=== PATIENT | male | born 1955 | race Caucasian/White ===

== ENCOUNTER 2023-06-12 17:37 | Emergency (ER) | payer BC, SELFPAY ==
--- NOTE | ~2023-06-12 | US_ITS ---
EXAMINATION: US EXTREMITY NONVASCULAR. CLINICAL INFORMATION: Right calf pain. Question injury. COMPARISON: None. TECHNIQUE: Limited ultrasound imaging to the right calf to ankle was performed. FINDINGS: A small hypoechoic area in the right medial calf measuring 1.67 x 3.03 x 0.706 cm is avascular. Findings are most suggestive of intramuscular hematoma. US/US extremity nonvascular IMPRESSION: Findings most suspicious for intramuscular hematoma in the medial distal calf. No increased vascularity seen.
[2023-06-12 18:21] VITALS: BP 152/96; PULSE 80; RESP 17; TEMP 36.7; O2SAT 99; BMI 27.9
--- NOTE | 2023-06-12 18:23 | ED.LOWEXIN ---
HPI - Extremity Injury (Lower) General Chief Complaint: Extremity Injury, Lower Stated Complaint: heard pop in calf muscle, difficulty walking Time Seen by Provider: 06/12/23 20:53 Source: patient and RN notes reviewed Mode of arrival: ambulatory Limitations: no limitations History of Present Illness HPI Narrative: 67-year-old male presents for evaluation of pain to the right calf. Patient reports he was trying to run with his grandson. He felt a pop in his right calf when taking his 1st step to try around He reports pain with any kind of weight-bearing or ambulation The pain does not radiate He is able to flex and extend the right foot No other complaints or concerns of Related Data Allergies Allergy/AdvReac Type Severity Reaction Status Date / Time atorvastatin [From LIPITOR] Allergy Intermediate FATTY LIVER Unverified 07/13/20 15:09 Review of Systems Musculoskeletal: Musculoskeletal: Denies deformity, Reports muscle cramps and Denies muscle weakness PMFSH Social History Social History Advance Directives: No Advance Directives Information Provided: No Physical Exam Vital Signs: Vital Signs: Last Vital Signs Temp 98.7 F 06/12/23 20:27 Pulse 72 06/12/23 20:27 Resp 18 06/12/23 20:27 BP 127/76 06/12/23 20:27 Pulse Ox 100 06/12/23 20:27 O2 Del Method Room Air 06/12/23 20:27 BMI result Body Mass Index 27.9 Const: General: healthy appearing, comfortable, no acute distress, alert and awake Nutritional Appearance: well nourished Orientation/consciousness: patient oriented x3 HEENT: Head: Yes normocephalic and Yes atraumatic Throat: Yes posterior oropharynx normal Eyes: Eyelids: Yes eyelids normal Conjunctivae: conjunctivae normal Sclerae: sclerae normal Corneas: corneas normal Pupils: Equal, round and reactive pupils present EOM: EOMs intact bilaterally Resp: Effort & Inspection: normal respiratory effort, able to speak in complete sentences and not labored Skin: General skin exam: elasticity normal Neuro: General: patient oriented x3 Cranial nerves: Yes Equal, round and reactive pupils present and Yes Bilaterally intact EOM present Cognition (Neuro): normal cognition Extrem: Other: Patient able to plantar flex and dorsiflex the right foot. He has a negative Real test on the right. He does have tenderness to the right mid upper calf. No significant deformity visual or palpable Course Course Course Narrative: RME: 67yo M w/PMHx HTN, HLD, c/o R calf pain s/p running with grandchild this afternoon, admits felt a pop. Has not ambulated since incident. denies currently being on Abx Ambulating with crutches. Proximal/mid calf with tenderness, Achilles nontender. Dorsiflexion causes some discomfort, plantar flexion intact Full HPI, ROS and PE to be performed by primary ED provider. Medical Decision Making Medical Decision Making [facility] Narrative: 67-year-old male presents for evaluation of likely soft tissue injury. Ultrasound was ordered in triage. Patient has a negative Real test is able to flex and extend the right foot. He has no tenderness over the right Achilles tendon. Clinically, the patient likely has a gastrocnemius strain versus tear. The patient was given crutches and referred to Orthopedics Differential Diagnosis Differential Diagnoses: The differential diagnosis associated with the presentation includes Muscle strain Contusion DVT Achilles tendon rupture Gastrocnemius tear Ruptured Gomes cyst Discharge Plan Discharge Clinical Impression: Pain of right calf Patient Disposition: Home, Self-Care Instructions: Leg Pain (ED) Additional Instructions: Follow-up with orthopedics at the number provided Use ibuprofen/Tylenol for pain Use are ibuprofen/Tylenol for pain Elevate your leg above your heart while resting Use the crutches to avoid bearing weight Referrals: Nando Pitt MD [Physician] - (right calf tear)
[2023-06-12 20:27] VITALS: BP 127/76; PULSE 72; RESP 18; TEMP 37.1; O2SAT 100
== END 2023-06-12 22:29 | disposition home or self-care (01) ==
PROVIDERS: Emergency Provider Emergency Medicine; PCP Physician Assistant Medical
DX: M79.661 Pain in right lower leg (principal)
CPT/HCPCS: 76882; 99283; 99284

== ENCOUNTER 2023-06-18 13:26 | Outpatient (AMB) | payer BC, SELFPAY ==
--- NOTE | 2023-06-18 13:44 | A.OFFVIS_ITS ---
Intake Intake Visit Reasons: EDF/U-gastrocnemius strain versus tear. Intake Note: Pineda is a 67 year old male who presents today for a fracture care appointment for his right calf pain, DOI 06/12/23. Patient reports he was trying to run with his grandson, felt a pop in his right calf when taking his 1st step and he missed it. Allergies atorvastatin [From LIPITOR] Allergy (Intermediate, Verified 06/18/23 13:47) FATTY LIVER HPI EDF/U-gastrocnemius strain versus tear. HPI Details 67-year-old male who presents in the office today, as a new patient, for an evaluation of right calf pain. The patient presented to the ED on 06/12/2023 status post running with his grandson when he felt a pop in the right calf. He was placed on crutches and instructed to avoid weight bearing. He claims to have pain with any kind of weight bearing or ambulation. Review of Systems Const All systems reviewed & are unremarkable except as noted in HPI and below Physical Exam Const General: cooperative and no acute distress Orientation/consciousness: patient oriented x3 Resp Effort & Inspection: normal respiratory effort and able to speak in complete sentences Cardio Peripheral pulses: Peripheral pulses 2+ throughout Skin General skin exam: no rashes or lesions noted Neuro General: patient oriented x3 Extrem Other: Right calf: Pain with calf muscle belly squeeze. Negative Real test. Achilles palpable and intact. Able to dorsiflex and plantarflex. NVI. Assessment & Plan Assessment & Plan (1) Strain of right gastrocnemius muscle: Code(s): S86.111A - Strain of other muscle(s) and tendon(s) of posterior muscle group at lower leg level, right leg, initial encounter (2) Pain of right calf: Code(s): M79.661 - Pain in right lower leg Plan Mr. Ring is a 67-year-old male who presents in the office today, as a new patient, for an evaluation of right calf pain. The patient presented to the ED on 06/12/2023 status post running with his grandson when he felt a pop in the right calf. He was placed on crutches and instructed to avoid weight bearing. He claims to have pain with any kind of weight bearing or ambulation. The patient was placed in a tall walking boot, off the shelf, while in the office today. He may weight bear as tolerated. He will be referred to physical therapy to work on gentle ROM modalities. Follow up will be in 4-6 weeks, or sooner if needed. Ultrasound of the right lower extremity, obtained on 06/12/2023, revealed: Findings most suspicious for intramuscular hematoma in the medial distal calf. No increased vascularity seen. Orders: Orders PT Evaluation and Treatment 06/18/23 M79.661 - Pain in right lower leg, S86.111A - Strain of other muscle(s) and tendon(s) of posterior muscle group at lower leg level, right leg, initial encounter Patient Instructions: Scribed for Elenita Lindsey PA-C by Winifred Rene medical reimbursement manager, on 06/18/2023 at 1:32 pm, EST. Coding Level of Care Code New Pt Level 3 (83861) Diagnoses Strain of right gastrocnemius muscle S86.111A Pain of right calf M79.661
== END 2023-06-18 14:01 | disposition home or self-care (01) ==
PROVIDERS: PCP Physician Assistant Medical; Visit Provider Physician Assistant
DX: S86.111A Strain of other muscle(s) and tendon(s) of posterior muscle group at lower leg level, right leg, initial encounter (principal); M79.661 Pain in right lower leg
CPT/HCPCS: 99203

== ENCOUNTER → 2023-06-18 13:26 | Outpatient (BNVA) | payer BC, SELFPAY | PROVIDERS: PCP Physician Assistant Medical; Visit Provider Physician Assistant ==

== ENCOUNTER 2023-07-31 09:42 | Outpatient (AMB) | payer BC, SELFPAY ==
[2023-07-31 09:44] VITALS: BMI 27.9
--- NOTE | 2023-07-31 09:44 | MHC.OFFVIS ---
Intake Vital Signs 07/31/23 09:44 Height 5 ft 6 in Weight 173 lb BMI 27.9 Intake Visit Reasons: gastrocnemius strain versus tear Intake Note: Pineda is a 67 year old male who presents today for a follow up appointment for his right calf pain, DOI 06/12/23. Patient reports he was racing with his grandson and he felt a popping sensation in his calf. He states that is pain is getting better and he is going to PT. Allergies atorvastatin [From LIPITOR] Allergy (Intermediate, Verified 07/31/23 09:44) FATTY LIVER HPI gastrocnemius strain versus tear HPI Details 67-year-old male who presents in the office today for a follow up of a right gastrocnemius muscle strain, which occurred on 06/12/2023 status post running with his grandson when he felt a pop in the right calf. He states his pain is getting better. He confirms participating in physical therapy with relief. He states he has sessions until the end of July 2023. He presents in the office today in a supportive sneaker. He confirms he has been working on long distance walking out of the boot. [facility] Social History (Updated 07/31/23 @ 09:59 by Maribell Anaya) Alcohol intake: never Patient Tobacco Use Status: Never used Tobacco Review of Systems Const All systems reviewed & are unremarkable except as noted in HPI and below Physical Exam Vital Signs: BMI result Body Mass Index 27.9 Const General: cooperative, healthy appearing and no acute distress Resp Effort & Inspection: normal respiratory effort and able to speak in complete sentences Cardio Rate: regular rate Peripheral pulses: Peripheral pulses 2+ throughout GI Palpation (GI): Soft to palpation Skin Lesions: no lesions Rashes: no rashes Extrem Other: Right calf: Resolved pain with calf muscle belly squeeze. Negative Real test. Achilles palpable and intact. Able to dorsiflex and plantarflex. NVI. Assessment & Plan Assessment & Plan (1) Strain of right gastrocnemius muscle: Code(s): S86.111A - Strain of other muscle(s) and tendon(s) of posterior muscle group at lower leg level, right leg, initial encounter Qualifiers: Encounter type: subsequent encounter Qualified Code(s): S86.111D - Strain of other muscle(s) and tendon(s) of posterior muscle group at lower leg level, right leg, subsequent encounter (2) Pain of right calf: Code(s): M79.661 - Pain in right lower leg Plan Mr. Ring is a 67-year-old male who presents in the office today for a follow up of a right gastrocnemius muscle strain, which occurred on 06/12/2023 status post running with his grandson when he felt a pop in the right calf. He states his pain is getting better. He confirms participating in physical therapy with relief. He states he has sessions until the end of July 2023. He presents in the office today in a supportive sneaker. He confirms he has been working on long distance walking out of the boot. I instructed the patient to continue working with physical therapy. He has agreed to attend. He states he was granted 28 sessions, but has only been scheduled for 14. After completion of his sessions he can work on the at home exercise program at home. Follow up will be PRN, or sooner if needed. Patient Instructions: Scribed for Elenita Lindsey PA-C by Winifred Rene biomedical electronics technician, on 07/31/2023 at 9:44 am, EST. Coding Level of Care Code Est Pt Level 3 (93554) Diagnoses Strain of right gastrocnemius muscle, subsequent encounter S86.111D Encounter type: subsequent encounter Pain of right calf M79.661
== END 2023-07-31 10:16 | disposition home or self-care (01) ==
PROVIDERS: PCP Internal Medicine; Visit Provider Physician Assistant
DX: S86.111D Strain of other muscle(s) and tendon(s) of posterior muscle group at lower leg level, right leg, subsequent encounter (principal); M79.661 Pain in right lower leg
CPT/HCPCS: 99213

== ENCOUNTER → 2023-07-31 09:42 | Outpatient (BNVA) | payer BC, SELFPAY | PROVIDERS: PCP Internal Medicine; Visit Provider Physician Assistant ==

== ENCOUNTER 2023-08-01 10:47 | Outpatient (AMB) | payer BC, SELFPAY ==
--- NOTE | 2023-08-01 11:00 | HO.SPINEOV ---
Intake Intake Visit Reasons: Displacement of cervical disc Intake Note: Mr. Ring is here today c/o neck pain. Hot Roller Required: No Allergies atorvastatin [From LIPITOR] Allergy (Intermediate, Verified 07/31/23 09:44) FATTY LIVER Assessment & Plan Assessment & Plan (1) Cervical radiculopathy: Code(s): M54.12 - Radiculopathy, cervical region Plan Mr Ring is a very nice 67-year-old gentleman who self-referred himself here to the office today to establish care for his spinal issues. He had 2 previous L5-S1 disc surgeries with Dr. Guadarrama many years ago. He was left with weakness of his foot after those surgeries. That has for the most part recover but he still has a little bit of instability. From the standpoint of his neck, he has been dealing with neck issues for many years. At 1 point he was told that he would be a candidate for a spinal fusion in his neck. He chose not to have that operation and has been dealing with on and off neck pain with pain that goes down his right arm into his hand. It can come and go. It is not disabling to the degree that he is anticipating surgery on it but he is curious about the status of where things stand compared to years ago. He has no recent MRIs to review on his lumbar or cervical spine. He has no myelopathic symptoms in the sense that he has no fine motor movement disruption, loss of strength in the hands or the arms, incontinence etc.. From the standpoint of his low back, he has occasional numbness of his left foot which can past from time to time but nothing severe or disabling. Through the years he has undergone physical therapy, cortisone injections at [facility]. None of these things recently. PMH: History of hypertension, acid reflux, high cholesterol, rotator cuff surgery, lumbar surgery, cholecystectomy, surgery on his testicle, surgery on his right arm after fracture. Social hx: He does not smoke Medications: Fenofibrate, tramadol, lisinopril, Nexium, ibuprofen Allergies: Lipitor Physical exam: He is awake alert oriented no acute distress, gait is normal, motor exam with reduced 4-5 strength of the tibialis and extensor hallucis longus and reflexes normal, no Rosales's. Imaging review: He has old imaging from the and early 1999s of his cervical spine and this shows what looks like disc degeneration at C5-6 and C6-7 with moderate central canal stenosis. Impression: 67-year-old gentleman who self-referred himself here to the office today to establish care for his cervical and lumbar issues. He had a previous surgeon who has since retired and he is had ongoing neck pain going into his right arm from time to time. His strength and reflexes are reassuring. He takes tramadol and ibuprofen as needed. His lumbar issues are basically stable with baseline weakness and intermittent numbness of his left foot. I reviewed his old MRIs with him, we discussed his current set of symptoms and the natural history of degenerative disc disease in both cervical and the lumbar spine. I would like to get a new cervical MRI just to get an update on the stenosis situation and to see if there has been any significant change since that seems to be bothering him the most. I will call him with the results. Thank you for allowing us to care for your patient. The total time spent with this visit with this patient was 45 minutes reviewing history, physical exam, old cervical MRI imaging review, and implementation of treatment plan or further diagnostic testing Quintin Loya MD,PhD [facility] Orders: Orders MR cervical spine wo con Today M54.12 - Radiculopathy, cervical region Coding Level of Care Code New Pt Level 4 (93356) Diagnoses Cervical radiculopathy M54.12
== END 2023-08-01 11:42 | disposition home or self-care (01) ==
PROVIDERS: PCP Physician Assistant Medical; Referring Provider Physician Assistant Medical; Visit Provider Physician Assistant
DX: M54.12 Radiculopathy, cervical region (principal)
CPT/HCPCS: 99204

== ENCOUNTER → 2023-08-01 10:47 | Outpatient (BNVA) | payer BC, SELFPAY | PROVIDERS: PCP Physician Assistant Medical; Visit Provider Physician Assistant ==

== ENCOUNTER 2023-08-27 09:29 | Outpatient (REF) | payer BC, SELFPAY ==
--- NOTE | ~2023-08-27 | MR_ITS ---
EXAMINATION: MR CERVICAL SPINE WITHOUT CONTRAST CLINICAL INFORMATION: Radiculopathy, cervical region. COMPARISON: None available. TECHNIQUE: MRI of the cervical spine was obtained using routine sequences without contrast. FINDINGS: The visualized posterior fossa is unremarkable. Reversal of the normal cervical lordosis. Grade 1 anterolisthesis at C4-C5 and mild retrolisthesis at C6-C7. No abnormal bone marrow signal. The spinal cord is normal in caliber. No abnormal cord signal. C2-C3: Left greater than right facet arthrosis. Severe left neural foraminal narrowing. No significant spinal canal stenosis. C3-C4: Disc osteophyte complex, right greater than left uncovertebral hypertrophy, and right greater than left facet arthrosis. Severe right and moderate left neural foraminal narrowing. No significant spinal canal stenosis. C4-C5: Right greater than left uncovertebral hypertrophy and facet arthrosis. Severe right neural foraminal narrowing. No significant spinal canal stenosis. C5-C6: Disc osteophyte complex, bilateral uncovertebral hypertrophy, and bilateral facet arthrosis. Near complete effacement of the ventral thecal sac with minimal flattening of the cord. Mild spinal canal stenosis. Moderate to severe bilateral neural foraminal narrowing. C6-C7: Disc osteophyte complex, bilateral uncovertebral hypertrophy, and bilateral facet arthrosis. Near complete effacement of the ventral thecal sac with flattening of the cord. Mild to moderate spinal canal stenosis. Severe bilateral neural foraminal narrowing. C7-T1: Mild left neural foraminal narrowing. No significant spinal canal stenosis. The paravertebral soft tissues are unremarkable. The visualized lung apices are clear. Partially obscured T2 hyperintense nodule in the left thyroid lobe measuring approximately 1.4 cm. MR/MR cervical spine wo con IMPRESSION: -Multilevel cervical spondylosis as detailed above, most notable at C6-C7 where there is mild to moderate spinal canal stenosis with associated severe neural foraminal narrowing bilaterally. There is also mild spinal canal stenosis at C5-C6 with moderate to severe neural foraminal narrowing bilaterally. -1.4 cm partially obscured left thyroid lobe nodule. Thyroid nodule recommendation: No follow-up recommended unless deemed clinically necessary.
== END 2023-08-27 09:30 | disposition home or self-care (01) ==
LOC: HO.MRI 09:29
PROVIDERS: Visit Provider Physician Assistant
DX: M54.12 Radiculopathy, cervical region (principal)
CPT/HCPCS: 72141

== ENCOUNTER 2023-09-08 10:00 | Outpatient (RCR) | payer BC, SELFPAY ==
--- NOTE | 2023-07-09 12:59 | MHC.PT.EP ---
[facility] [place] Office [place] Office [place] Office [address] [phone] F: [phone] F: [phone] F: [phone] F: [phone] Physical Therapy Plan of Care Date of Evaluation: 07/09/23 Date of Surgery: Diagnosis: STRAIN OF RIGHT GASTROCNEMIUS MUSCLE Assessment: 67 YO MALE REF TO PT W H/O 06/12/23 RUNNING/ ACCELERATING AND INJURING HIS Rt GASTROC-> ER AND AN US R/O A COMPLETE TEAR- HE HAS BEEN WBAT Rt LE IN A TALL WALKING BOOT SINCE 06/18/23. 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 HE HAS RESIDUAL WEAKNESS IN HIS LEFT FOOT/ EHL S/P 2 LUMBAR DISCECTOMIES. OBJECTIVELY: LIMITED ROM IN Rt ANKLE, DECR HIP FLEXIB, (+) EDEMA Rt ANKLE W RESOLVING BRUISING, IMPACTED FUNCT MOB/ STAND/ WALK/ DRUMMING, AND TENDERNESS Rt MEDIAL GASTROC MUSCULOTENDINOUS JUNCTION. HE WOULD BENEFIT FROM PT TO ADDRESS ROM, STABILITY, PAIN MGMT, AND FUNCTIONAL MOB. Frequency and Duration: The patient will be seen 2 x WK x 5 WKS Short Term Goals: *DECR PAIN Rt GASTROC/ CALF TO 2-3/10 *IMPROVE ROM Rt ANKLE AND HIP *INITIATE HEP *INITIATE PROPRIOC/ STATIC BALANCE PROGR Dietary Service Aide Goals: *Pt RESUME REG ADLs W/O Rt WALKING BOOT *Pt DEMON EFFICIENT GAIT MECH ON LEVEL GROUND AND STAIRS *INDEP HEP AND SELF-SX MGMT TECHN *IMPROVE LEFI SCORE INCR FUNCT INDEP (AT EVAL 33/80) Treatment Plan: Modalities to reduce pain, spasms and effusion. Manual therapy to restore motion and function. Therapeutic exercise to improve strength and flexibility. Neuromuscular re-education for posture and balance. Therapeutic activities to return to functional activities of daily living. Electronically signed by: RASHAWN GUERRERO,PT Please sign and return to therapist. Thank you for your referral.
--- NOTE | 2023-10-16 11:51 | MHC.PT.DC ---
[facility] [place] Office [place] Office [place] Office [address] [facility] [phone] F: [phone] F: [phone] F: [phone] F: [phone] Physical Therapy Discharge Report Diagnosis: STRAIN OF RIGHT GASTROCNEMIUS MUSCLE Date of Surgery: Date of Evaluation: 07/09/23 Date of Discharge: 10/16/23 Treatments to Date: 14 Cancellations to Date: 0 No Shows to Date: 0 Discharge Status: Achieved Goals Improved Function Independent with HEP Discharge Summary: THE Pt IS D/C THIS DATE W A PROGRESSIVE HEP- HE HAS MET MAJORITY OF PT GOALS (ADDRESSING RESIDUAL CALF WEAKNESS) AND HAS BEEN ABLE TO RESUME PLAYING MUSIC (DRUMS) WITHOUT SXS OR LIMITATIONS. HE HAS SOME RESIDUAL ECCENTRIC STRENGTH DEFICIT IN HIS RIGHT CALF, WHICH IS ADDRESSED VIA HIS HEP. Electronically signed by: RASHAWN GUERRERO,PT Please sign and return to therapist. Thank you for your referral.
== END 2023-10-16 11:51 | disposition home or self-care (01) ==
LOC: HO.PT 10:00
PROVIDERS: PCP Internal Medicine; Visit Provider Physician Assistant
DX: M79.661 Pain in right lower leg (principal); S86.111D Strain of other muscle(s) and tendon(s) of posterior muscle group at lower leg level, right leg, subsequent encounter
CPT/HCPCS: 97110; 97116; 97140; 97162; 97530

== ENCOUNTER 2024-01-19 10:00 | Outpatient (RCR) | payer BC, SELFPAY | END 2024-01-27 15:06 | disposition home or self-care (01) | LOC: HO.OT 10:00 | PROVIDERS: PCP Physician Assistant Medical; Visit Provider Emergency Medicine | DX: M77.11 Lateral epicondylitis, right elbow (principal) | CPT/HCPCS: 29125; 97033; 97110; 97166; 97760 ==